=== PATIENT | male | born 2000 | race Caucasian/White ===

== ENCOUNTER 2019-05-10 11:11 | Outpatient (RCR) | payer MEDICAID, SELFPAY ==
[2019-04-24 13:54] VITALS: BMI 46.0
== END 2019-05-10 23:59 | disposition home or self-care (01) ==
LOC: NS 11:11
PROVIDERS: PCP Nurse Practitioner Family; Visit Provider Nurse Practitioner Family
DX: Z71.3 Dietary counseling and surveillance (principal); E66.09 Other obesity due to excess calories; Z68.42 Body mass index [BMI] 45.0-49.9, adult
CPT/HCPCS: 97802